=== PATIENT | male | born 1960 | race African-American/Black ===

== ENCOUNTER 2022-07-20 01:55 | Emergency (ER) | payer OTHER ==
[~2022-07-20] VITALS: Ht 172.7 cm; Wt 149.2 kg
[2022-07-20 02:06] VITALS: BP 126/85
--- NOTE | 2022-07-20 02:19 | NUR ---
Patient taken to bed 10.
--- NOTE | 2022-07-20 04:31 | NUR ---
Dr. Alonzo examining patient.
[2022-07-20] MEDS ORDERED: IBUP-2213 PO (04:39)
[2022-07-20] MEDS ORDERED: CIPR500T4 PO (04:39)
[2022-07-20 04:45] VITALS: BP 122/85
--- NOTE | 2022-07-20 04:45 | NUR ---
Patient discharged with v/s stable. Written and verbal after care instructions given and explained. Patient alert, oriented and verbalized understanding of instructions. Ambulatory with steady gait. All questions addressed prior to discharge. ID band removed. Patient advised to follow up with PMD. Rx of Ciprofloxacin and Ibuprofen given. Patient educated on indication of medication including possible reaction and side effects. Opportunity to ask questions provided and answered.
== END 2022-07-20 04:45 | disposition home or self-care (01) ==
LOC: MED 01:55
DX: N39.0 Urinary tract infection, site not specified (principal)
CPT/HCPCS: 81002; 87086; 99283